=== PATIENT | male | born 1960 | race Caucasian/White ===

== ENCOUNTER → 2023-04-02 | Outpatient (REF) | payer BC | LOC: M LAB REF 17:44 | PROVIDERS: ATTEND Surgery | DX: L72.0 Epidermal cyst (principal) ==

== ENCOUNTER → 2023-04-30 | Outpatient (REF) | payer BC | LOC: M SFHCDERM 17:25 | PROVIDERS: ATTEND Physician Assistant | DX: B07.9 Viral wart, unspecified (principal) ==